=== PATIENT | female | born 1935 | race Caucasian/White ===

== ENCOUNTER 2017-05-18 04:52 | Emergency (ER) | payer MEDICARE ==
[~2017-05-18] VITALS: Ht 160 cm; Wt 68.0 kg
[~2017-05-18 04:52] MED LIST: DILT300C PO; HYZA100T4 PO; LEXA10TA PO; OMEP20CA5 PO
[2017-05-18 04:58] VITALS: BP 184/85; PULSE 75; RESP 16; O2SAT 97
--- NOTE | 2017-05-18 05:30 | PD ---
HPI Chief Complaint: Head Injury Time Seen by Provider: 05:04 Travel History International Travel<30 days: No Contact w/Intl Traveler<30days: No Traveled to known affect area: No History of Present Illness HPI The patient is a 81-year-old female that fell out of bed tonight and hit her occipital area. There was no loss of consciousness, nausea, vomiting or mental status change since the fall. The patient does have a history of dementia. Her insisted that she come in and be checked in the emergency department. She was just seen at [facility] for right hip pain and plain x-ray showed only arthritis and she was told to follow-up with orthopedics about this. The patient, according to the , has had hip pain intermittently for years and is followed with orthopedics in [facility]. When she fell tonight she likely did fall on the hip, we know she fell and hit her occipital area. PFSH Past Medical History Cancer: Yes (breast, uterine) Hypertension: Yes Tetanus Vaccination: > 5 Years ?: Not Past Surgical History Abdominal Surgery: Yes (APPENDECTOMY, hernia repair) Genitourinary Surgery: Yes (BLADDER REPAIR) Gynecologic Surgery: Yes (hysterectomy, breast CA right ) Hysterectomy: Yes Oral Surgery: Yes (bilateral cateract) Other Surgery: Yes (rectal/colon SX, Vein SX right leg, ) Social History Alcohol Use: No Tobacco Use: No Substance Use: No Allergies-Medications (Allergen,Severity, Reaction): Coded Allergies: nadolol (Unverified Allergy, Severe, CANT BREATHE, 10/20/16) wheat (Unverified Allergy, Severe, RASH ITCHING, 10/20/16) adhesive (Unverified Allergy, Intermediate, ITCHES, RASH, 10/20/16) grass pollen (Unverified Allergy, Intermediate, ITCHING, LOST VOICE, ) mold (Unverified Allergy, Intermediate, ITCHING, 10/20/16) shrimp (Unverified Allergy, Intermediate, CANT BREATHE, 10/20/16) acetaminophen (Unverified Allergy, Unknown, UK, 10/20/16) amoxicillin (Verified Allergy, Unknown, 05/18/17) calcitriol (Verified Allergy, Unknown, 05/18/17) clavulanic acid (Verified Allergy, Unknown, 05/18/17) clopidogrel (Verified Allergy, Unknown, 05/18/17) latex (Verified Allergy, Unknown, 05/18/17) magnesium (Verified Allergy, Unknown, 05/18/17) metronidazole (Verified Allergy, Unknown, unknown, 05/18/17) oxycodone (Unverified Allergy, Unknown, UK, 10/20/16) potassium chloride (Verified Allergy, Unknown, 05/18/17) sodium chloride (Verified Allergy, Unknown, 05/18/17) Uncoded Allergies: MILDEW (Allergy, Intermediate, ITCHING, 06/24/07) Reported Meds & Prescriptions Reported Meds & Active Scripts Active Reported Prilosec (Omeprazole) 20 Mg Capcr 20 Mg PO DAILY Lexapro (Escitalopram Oxalate) 10 Mg Tab 10 Mg PO DAILY Cardizem Cd (Diltiazem HCl) 300 Mg Cap 360 Mg PO DAILY Hyzaar 100-12.5 (Losartan Potassium-Hct 100-12.5) 100 - Tab 100 - PO DAILY Review of Systems ROS Limitations: Poor Historian Except as stated in HPI: all other systems reviewed are Neg Physical Exam Narrative GENERAL: Well-nourished, well-developed patient in moderate apparent distress, mostly with her right hip discomfort. Her vital signs show blood pressure 184/ 85 but are otherwise normal. SKIN: Focused skin assessment warm/dry. No contusion is seen on the scalp but she does have tenderness without any associated bony deformity on the mid occipital area of the scalp. HEAD: Normocephalic. The raccoon eyes or burdick sign is present. EYES: No scleral icterus. No injection or drainage. NECK: Supple, trachea midline. No JVD or lymphadenopathy. No tenderness is present and no deformity is present on the neck. CARDIOVASCULAR: Regular rate and rhythm without murmurs, gallops, or rubs. RESPIRATORY: Breath sounds equal bilaterally. No accessory muscle use. GASTROINTESTINAL: Abdomen soft, non-tender, nondistended. MUSCULOSKELETAL: No cyanosis, or edema. There is tenderness without any obvious contusions on the right hip. No foreshortening is noted. BACK: Nontender without obvious deformity. No CVA tenderness. Data Data Last Documented VS Vital Signs Date Time Temp Pulse Resp B/P (MAP) Pulse Ox O2 Delivery O2 Flow Rate FiO2 05/18/17 05:07 Room Air 05/18/17 04:58 75 16 184/85 (118) [address] Brain W/O Iv Contrast(Rout) (05/18/17 05:05) Ct Hip W/O Contrast (05/18/17 ) MDM Medical Decision Making Medical Screen Exam Complete: Yes Emergency Medical Condition: Yes Medical Record Reviewed: Yes Interpretation(s) The CT of the hip shows mild osteoarthritis and no fracture or dislocation. The CT brain shows intact calvaria and no evidence of skull fracture. Differential Diagnosis Contusion scalp, skull fracture, intracranial bleed-highly unlikely, fracture hip, osteoarthritis right hip Narrative Course The patient has osteoarthritis of the right hip which causes most of her pain. She has minor pain on the skull where she has a contusion of the scalp. Diagnosis Primary Impression: Contusion of scalp Additional Impression: Osteoarthritis of hip Additional Instructions: As we discussed, follow-up with orthopedics. Med/Other Pt SpecificInfo: No Change to Meds Disposition: 01 DISCHARGE HOME Condition: Stable Alexis Guardado MD May 18, 2017 05:30
--- NOTE | 2017-05-18 05:57 | RADRPT ---
EXAM DATE/TIME: 05/18/2017 05:22 [facility] COMPARISON: No previous studies available for comparison. INDICATIONS : Fall, head injury. RADIATION DOSE: 59.41 CTDIvol (mGy) MEDICAL HISTORY : Carcinoma, breast. Hypertension. Uterine carcinoma SURGICAL HISTORY : None. ENCOUNTER: Initial ACUITY: 1 day PAIN SCALE: 6/10 LOCATION: cranial TECHNIQUE: Multiple contiguous axial images were obtained of the head. Using automated exposure control and adj ustment of the mA and/or kV according to patient size, radiation dose was kept as low as reasonably a chievable to obtain optimal diagnostic quality images. DICOM format image data is available electro nically for review and comparison. FINDINGS: CEREBRUM: Periventricular low attenuation change involving both cerebral hemispheres. The ventricles are normal for age. No evidence of midline shift, mass lesion, hemorrhage or acute infarction. No extra-axial fluid collections are seen. POSTERIOR FOSSA: The cerebellum and brainstem are intact. The 4th ventricle is midline. The cerebellopontine angle i s unremarkable. EXTRACRANIAL: The visualized portion of the orbits is intact. SKULL: The calvaria is intact. No evidence of skull fracture. CONCLUSION: No acute disease. Delvis Ruiz Jr., MD on May 18, 2017 at 5:54 Board Certified Radiologist. This report was verified electronically.
--- NOTE | 2017-05-18 06:00 | RADRPT ---
EXAM DATE/TIME: 05/18/2017 05:25 [facility] COMPARISON: No previous studies available for comparison. INDICATIONS : Fall, right hip pain. RADIATION DOSE: 13.13 CTDIvol (mGy) MEDICAL HISTORY : Hypertension. Carcinoma, breast. Uterine carcinoma SURGICAL HISTORY : None. ENCOUNTER: Initial ACUITY: 1 day PAIN SCALE: 5/10 LOCATION: Right hip TECHNIQUE: Volumetric scanning of the hip was performed. Using automated exposure control and adjustment of the mA and/or kV according to patient size, radiation dose was kept as low as reasonably achievable to o btain optimal diagnostic quality images. DICOM format image data is available electronically for rev iew and comparison. FINDINGS: No fracture or dislocation. Osteoarthritis involving the right hip. No femoral head flattening or sub chondral geode formation. Degenerative changes involve the lower lumbar spine. No soft tissue swellin g or hematoma observed. CONCLUSION: 1. No fracture or dislocation. 2. Mild hip osteoarthritis. Delvis Ruiz Jr., MD on May 18, 2017 at 5:56 Board Certified Radiologist. This report was verified electronically.
[2017-05-18 06:40] VITALS: BP 172/88; PULSE 85; RESP 16; TEMP 98.2; O2SAT 100
== END 2017-05-18 06:48 | disposition home or self-care (01) ==
LOC: PHED 04:52
DX: S00.03XA Contusion of scalp, initial encounter (principal); M16.10 Unilateral primary osteoarthritis, unspecified hip; F03.90 Unspecified dementia, unspecified severity, without behavioral disturbance, psychotic disturbance, mood disturbance, and anxiety; W06.XXXA Fall from bed, initial encounter; Y92.003 Bedroom of unspecified non-institutional (private) residence as the place of occurrence of the external cause
CPT/HCPCS: 70450; 73700; 99284